=== PATIENT | male | born 1985 | race Caucasian/White ===

== ENCOUNTER 2016-10-17 00:30 | Inpatient (IN) | payer OTHER ==
[2016-10-17 01:12] LABS: BASOPHIL 0.2 % (0-2); EOSINOPHIL 1.2 % (0-5); HCT 43.7 % (42.0-52.0); HGB 14.6 g/dl (13.2-18.0); LYMPHOCYTE 19.2 % (15-48); MCH 27.8 pg (25.0-31.0); MCHC 33.4 g/dL (32.0-36.0); MCV 83.1 fL (78.0-100.0); MPV 10.4 fL (6.0-9.5); NEUTROPHIL 71.4 % (41-80); PLT 250 K/uL (150-400); RBC 5.26 M/uL (4.70-6.00); RDW 13.4 % (11.5-14.0); WBC 10.3 K/uL (4.0-10.5)
[2016-10-17 01:16] LABS: BILIRUBIN NEGATIVE (NEGATIVE); BLOOD NEGATIVE Ery/uL (NEGATIVE); CLARITY CLEAR (CLEAR); COLOR YELLOW (YELLOW); GLUCOSE (U) NORMAL (NORMAL); KETONE (U) NEGATIVE (NEGATIVE); LEUKOCYTES NEGATIVE Leu/uL (NEGATIVE); NITRITE NEGATIVE (NEGATIVE); PROTEIN NEGATIVE (NEGATIVE); UROBILINOGEN 0.2 mg/dL (0.2-1.0); pH 6.5 (5.0-9.0)
[2016-10-17 01:31] LABS: LACTIC ACID 0.8 mmol/L (0.5-2.2)
[2016-10-17 01:32] LABS: ALBUMIN 4.2 g/dL (3.5-5.0); BILIRUBIN - TOTAL 0.3 mg/dL (0.1-1.0); CREATININE 1.1 mg/dL (0.7-1.2); GLOBULIN (CALCULATION) 3.4 g/dL (2.2-4.2); TOTAL PROTEIN 7.6 g/dL (6.4-8.3)
[2016-10-17 07:21] LABS: BASOPHIL 0.2 % (0-2); EOSINOPHIL 0.8 % (0-5); HCT 40.4 % (42.0-52.0); HGB 13.7 g/dl (13.2-18.0); LYMPHOCYTE 18.4 % (15-48); MCH 28.2 pg (25.0-31.0); MCHC 33.9 g/dL (32.0-36.0); MCV 83.3 fL (78.0-100.0); MONOCYTE 6.1 % (0-12); MPV 10.6 fL (6.0-9.5); NEUTROPHIL 74.5 % (41-80); PLT 229 K/uL (150-400); RBC 4.85 M/uL (4.70-6.00); RDW 13.5 % (11.5-14.0); WBC 10.9 K/uL (4.0-10.5)
[2016-10-17 07:25] LABS: INR 1.06 (0.9-1.2); PROTHROMBIN TIME 13.4 SECONDS (11.7-14.0)
[2016-10-17 07:31] LABS: BILIRUBIN - TOTAL 0.3 mg/dL (0.1-1.0); GLOBULIN (CALCULATION) 2.5 g/dL (2.2-4.2); MAGNESIUM 2.09 mg/dL (1.40-2.10); PHOSPHORUS 3.4 mg/dL (2.7-4.5); POTASSIUM 4.2 mmol/L (3.5-5.1); TOTAL PROTEIN 6.5 g/dL (6.4-8.3)
[2016-10-18 05:45] LABS: HGB 12.9 g/dl (13.2-18.0); MCH 27.9 pg (25.0-31.0); MCHC 33.1 g/dL (32.0-36.0); MCV 84.4 fL (78.0-100.0); MPV 10.3 fL (6.0-9.5); RBC 4.62 M/uL (4.70-6.00); RDW 13.7 % (11.5-14.0); WBC 6.7 K/uL (4.0-10.5)
[2016-10-18 06:01] LABS: POTASSIUM 4.2 mmol/L (3.5-5.1)
--- NOTE | 2016-10-18 10:17 | NUR ---
REVIEWED DISCHARGE INSTRUCTIONS, MEDICATIONS AND APPT INFORMATION WITH PT VERBALIZED UNDERSTANDING DENIES PAIN OR DISCOMFORT DR DICKINSON IN TO SEE PT DISCUSSED DISCHARGE
== END 2016-10-18 10:55 | disposition home or self-care (01) | DRG 342 ==
LOC: FER 00:30 → FMS 03:25
PROVIDERS: Internal Medicine; Nurse Practitioner; Surgery; ADMIT Internal Medicine Adolescent Medicine
PROC: 0DTJ4ZZ Resection of Appendix, Percutaneous Endoscopic Approach (ICD-10-PCS; principal; 2016-10-17 12:30)
DX: K35.80 Unspecified acute appendicitis (principal); Z68.42 Body mass index [BMI] 45.0-49.9, adult; L40.50 Arthropathic psoriasis, unspecified; E66.9 Obesity, unspecified; L40.9 Psoriasis, unspecified; Z79.899 Other long term (current) drug therapy; Z82.3 Family history of stroke
CPT/HCPCS: 36415; 71010; 80048; 80053; 81003; 82150; 83605; 83690; 83735; 84100; 85025; 85610; 87040; 87088; 88304; 93005; 94010; J0131; J1885; J2270; J2405; J2543; J2704; J2710; J3010; Q9967